=== PATIENT | female | born 1945 | race African-American/Black ===

== ENCOUNTER 2018-01-23 09:20 | Emergency (ER) | payer OTHER ==
[~2018-01-23] VITALS: Ht 157.5 cm; Wt 83.0 kg
[2018-01-23 09:23] VITALS: BP 141/95
[2018-01-23] MEDS ORDERED: CARDIZEM CD120 MG PO (09:28)
[2018-01-23] MEDS ORDERED: LISINOPRIL10 MG PO (09:28)
[2018-01-23] MEDS ORDERED: CRESTOR10 MG PO (09:28)
[2018-01-23] MEDS ORDERED: FOLIC ACID 1 MG1 MG PO (09:29)
[2018-01-23] MEDS ORDERED: CLONIDINE0.1 PO (09:29)
[2018-01-23] MEDS ORDERED: MORPHINE SULFAT15 M3 PO (09:49)
[2018-01-23] MEDS ORDERED: PREDNISONE 20 M20 MG PO (09:49)
== END 2018-01-23 10:23 | disposition home or self-care (01) ==
LOC: ER 09:20
DX: M54.5 Low back pain (principal); R20.2 Paresthesia of skin; M79.605 Pain in left leg; I10 Essential (primary) hypertension; E78.5 Hyperlipidemia, unspecified; E78.00 Pure hypercholesterolemia, unspecified; M06.9 Rheumatoid arthritis, unspecified; Z88.1 Allergy status to other antibiotic agents